=== PATIENT | male | born 1955 | race Caucasian/White ===

== ENCOUNTER 2016-07-11 13:22 | Inpatient (IN) | payer BC ==
[~2016-07-11] VITALS: Ht 172.7 cm; Wt 58.7 kg
[2016-07-11 15:02] LABS: Basophils # (auto) 0.1 uL; Basophils % (auto) 0.6 % (0.0-2.0); Eosinophils # (auto) 0.2 uL; Eosinophils % (auto) 1.7 % (0.0-7.0); Hemoglobin 15.6 g/dL (13.5-17.5); Lymphocytes # (auto) 1.8 uL; Lymphocytes % (auto) 13.9 % (10.0-50.0); Mean Corpuscular Hemoglobin 27.9 pg (28.0-32.0); Mean Corpuscular Hgb Conc. 32.5 g/dL (32.0-36.0); Mean Corpuscular Volume 85.9 fL (80.0-100.0); Mean Platelet Volume 7.3 fL (7.4-10.4); Monocytes # (auto) 1.4 uL; Neutrophils # (auto) 9.4 uL; Neutrophils % (auto) 72.8 % (37.0-80.0); Platelet Count (auto) 509 10^3/uL (140-450); Red Cell Distribution Width 13.1 % (11.6-16.0); White Blood Cell 12.9 10^3/uL (4.4-10.8)
[2016-07-11 15:29] LABS: Albumin 3.3 g/dL (3.4-5.0); Alkaline Phosphatase 116 U/L (45-117); Anion Gap 5 (5-15); Aspartate Aminotransferase 36 U/L (15-37); BUN/Creatinine Ratio 16.3; Bilirubin, Total 1.2 mg/dL (0.2-1.0); Blood Urea Nitrogen 17 mg/dL (7-18); Carbon Dioxide 29 mmol/L (21-32); Chloride 104 mmol/L (98-107); GFR African American 93 mL/min; GFR Non-African American 77 mL/min; Glucose 115 mg/dL (74-106); Magnesium 2.5 mg/dL (1.6-2.6); Potassium 4.1 mmol/L (3.5-5.1); Sodium 138 mmol/L (136-145); Total Protein 8.1 g/dL (6.4-8.2)
[2016-07-11 16:58] LABS: B-Type Natriuretic Peptide 3.78 pg/mL (0-100)
[2016-07-11 17:03] LABS: INR 0.98 (0.9-1.15); Partial Thromboplastin Time 28.5 sec (22.64-33.71); Prothrombin Time 10.6 sec (9.37-12.3)
[2016-07-11 17:41] LABS: Temperature: 23.7 C (20.0-25.0)
[2016-07-11] MEDS ORDERED: MORPHINE SULF INJ 2 MG/ML SYRINGE 1ML IV PRN (18:45)
[2016-07-11] MEDS ORDERED: NITROGLYCERIN 0.4 MG SL TAB SL PRN (18:45)
[2016-07-11] MEDS ORDERED: SOD CHL 0.45% 1,000 ML IV ONE (18:45)
[2016-07-11 22:58] VITALS: BP 126/81
[2016-07-11] MEDS ORDERED: LISI10TA6 PO (23:20)
[2016-07-11] MEDS ORDERED: METF-312 PO (23:20)
[2016-07-12 05:06] VITALS: BP 113/75
[2016-07-12 05:41] LABS: Basophils # (auto) 0 uL; Basophils % (auto) 0.4 % (0.0-2.0); DEFINITIVE VIEW TRANSMISSION; Eosinophils # (auto) 0.3 uL; Eosinophils % (auto) 2.6 % (0.0-7.0); Hematocrit 43.9 % (41.0-53.0); Hemoglobin 14.4 g/dL (13.5-17.5); Lymphocytes # (auto) 2.2 uL; Lymphocytes % (auto) 17.8 % (10.0-50.0); Mean Corpuscular Hgb Conc. 32.7 g/dL (32.0-36.0); Mean Corpuscular Volume 85.4 fL (80.0-100.0); Mean Platelet Volume 7.3 fL (7.4-10.4); Monocytes # (auto) 1.7 uL; Monocytes % (auto) 13.8 % (0.0-12.0); Neutrophils # (auto) 8.1 uL; Neutrophils % (auto) 65.4 % (37.0-80.0); Platelet Count (auto) 508 10^3/uL (140-450); White Blood Cell 12.4 10^3/uL (4.4-10.8)
[2016-07-12 06:07] LABS: Albumin 2.9 g/dL (3.4-5.0); BUN/Creatinine Ratio 14.9; Calcium 8.5 mg/dL (8.5-10.1); Potassium 3.8 mmol/L (3.5-5.1)
[2016-07-12 06:10] LABS: Bilirubin, Total 1.4 mg/dL (0.2-1.0); Total Protein 7.2 g/dL (6.4-8.2)
[2016-07-12 08:00] VITALS: BP 137/76
[2016-07-12] MEDS ORDERED: IOHEXOL 300 MG/ML 100ML BOTTLE IJ ONE ×3 (08:54→10:54)
[2016-07-12 13:00] VITALS: BP 149/84
[2016-07-12 17:00] VITALS: BP 117/75
[2016-07-12 18:19] LABS: Body Fluid Polymorphonuclear 13 %
[2016-07-12 21:30] VITALS: BP 139/87
[2016-07-13 05:00] VITALS: BP 116/78
[2016-07-13 08:43] VITALS: BP 119/79
[2016-07-13 12:18] VITALS: BP 134/47
[2016-07-13 16:51] VITALS: BP 140/82
[2016-07-13 22:00] VITALS: BP 149/95
[2016-07-14 05:00] VITALS: BP 132/81
[2016-07-14 09:00] VITALS: BP 131/78
[2016-07-14 13:00] VITALS: BP 119/79
[2016-07-14 17:00] VITALS: BP 130/70
[2016-07-14 22:00] VITALS: BP 141/83
[2016-07-15 05:00] VITALS: BP 132/81
[2016-07-15 08:48] VITALS: BP 141/87
[2016-07-15 12:36] VITALS: BP 140/75
[2016-07-15] MEDS ORDERED: DEXTROSE (50%) 50ML SYRG IV PRN (14:30)
[2016-07-15] MEDS: LISINOPRIL 10 MG TAB PO SCH (15:47)
[2016-07-15 16:42] VITALS: BP 143/90
[2016-07-15] MEDS: InsuLIN REG 1unit/0.01ml Soln (100units/ml) SC SCH ×2 (16:42→22:00)
[2016-07-15] MEDS: ACCU-CHEK COMFORT CURVE STRIP VI SCH ×2 (16:43→22:23)
[2016-07-15 22:00] VITALS: BP 152/91
[2016-07-16 05:42] LABS: Basophils # (auto) 0.1 uL; Basophils % (auto) 0.5 % (0.0-2.0); Eosinophils # (auto) 0.4 uL; Eosinophils % (auto) 3.5 % (0.0-7.0); Hematocrit 43.4 % (41.0-53.0); Hemoglobin 14.4 g/dL (13.5-17.5); Lymphocytes # (auto) 2.3 uL; Lymphocytes % (auto) 20.4 % (10.0-50.0); Mean Corpuscular Hemoglobin 28.3 pg (28.0-32.0); Mean Corpuscular Hgb Conc. 33.2 g/dL (32.0-36.0); Mean Corpuscular Volume 85.3 fL (80.0-100.0); Mean Platelet Volume 7.3 fL (7.4-10.4); Monocytes # (auto) 1.5 uL; Monocytes % (auto) 13.7 % (0.0-12.0); Neutrophils # (auto) 6.9 uL; Neutrophils % (auto) 61.9 % (37.0-80.0); Platelet Count (auto) 538 10^3/uL (140-450); Red Cell Distribution Width 12.5 % (11.6-16.0); White Blood Cell 11.1 10^3/uL (4.4-10.8)
[2016-07-16 05:47] LABS: Calcium 8.4 mg/dL (8.5-10.1); Potassium 4.4 mmol/L (3.5-5.1)
[2016-07-16 06:00] VITALS: BP 107/76
[2016-07-16] MEDS: ACCU-CHEK COMFORT CURVE STRIP VI SCH ×4 (06:02→22:00)
[2016-07-16] MEDS: InsuLIN REG 1unit/0.01ml Soln (100units/ml) SC SCH ×4 (06:02→22:00)
[2016-07-16 07:43] VITALS: BP 115/80
[2016-07-16] MEDS ORDERED: POVIDONE IODINE 10 % TOPICAL OINT 30GM TOP ONE ×2 (09:09→11:45)
[2016-07-16] MEDS ORDERED: BUPIVACAINE W/ EPINEPH 0.25% INJ 50ML MDV ONE (09:10)
[2016-07-16] MEDS ORDERED: BUPIVACAINE 0.25% INJ 50ML VIAL ONE (09:10)
[2016-07-16] MEDS ORDERED: LIDOCAINE W/ EPINEPHRINE 1 % INJ 30ML ONE (09:10)
[2016-07-16] MEDS ORDERED: LIDOCAINE 1% HCL (LOCAL ANESTH.) INJ 20ML MDV ONE (09:10)
[2016-07-16] MEDS ORDERED: ceFAZolin 1GM/50ML D5W 50 ML IV ONE (09:12)
[2016-07-16] MEDS ORDERED: MIDAZOLAM HCL 1MG/1ML-2 ML VIAL ONE (09:56)
[2016-07-16] MEDS ORDERED: DEXAMETHASONE SOD PHOS 10MG/1ML VIAL INJ ONE (09:56)
[2016-07-16] MEDS ORDERED: fentaNYL CITRATE 100 MCG/2 ML VL ONE (09:56)
[2016-07-16] MEDS ORDERED: PROPOFOL 10 MG/ML 20 ML IV ONE (09:56)
[2016-07-16] MEDS ORDERED: MEPERIDINE HCL (50 MG/ML) 1 ML VIAL ONE (09:57)
[2016-07-16] MEDS ORDERED: SUCCINYLCHOLINE CHLORIDE 20 MG/ML 10ML VIAL IV ONE (09:59)
[2016-07-16] MEDS: LISINOPRIL 10 MG TAB PO SCH (10:00)
[2016-07-16] MEDS ORDERED: ONDANSETRON HCL 4 MG/2 ML VIAL IV ONE (12:00)
[2016-07-16] MEDS ORDERED: HYDROmorphone HCL 2 MG/ML VL IV PRN (12:00)
[2016-07-16] MEDS ORDERED: ePHEDrine SULFATE 50 MG/ML AMP IV PRN (12:00)
[2016-07-16] MEDS ORDERED: ACCU-CHEK COMFORT CURVE STRIP VI ONE (12:00)
[2016-07-16] MEDS ORDERED: LABETALOL HCL 5 MG/ML 4ML SYRINGE IV PRN (12:00)
[2016-07-16] MEDS ORDERED: KETOROLAC TROMETH 30 MG/ML 1ML VIAL IV ONE (12:00)
[2016-07-16] MEDS: MORPHINE SULF INJ 2 MG/ML SYRINGE 1ML IV PRN ×2 (12:20→12:30)
[2016-07-16 16:49] VITALS: BP 99/70
[2016-07-16 22:00] VITALS: BP 125/73
[2016-07-17] MEDS: HYDROcodone-ACET 5/325MG TAB PO PRN ×2 (04:55→12:29)
[2016-07-17 06:00] VITALS: BP 115/76
[2016-07-17] MEDS: InsuLIN REG 1unit/0.01ml Soln (100units/ml) SC SCH ×3 (07:00→22:00)
[2016-07-17] MEDS: ACCU-CHEK COMFORT CURVE STRIP VI SCH ×3 (07:11→22:26)
[2016-07-17 08:00] VITALS: BP 120/75
[2016-07-17] MEDS: LISINOPRIL 10 MG TAB PO SCH (08:40)
[2016-07-17 12:00] VITALS: BP 121/83
[2016-07-17] MEDS: MORPHINE SULF INJ 2 MG/ML SYRINGE 1ML IV PRN (14:38)
[2016-07-17 17:00] VITALS: BP 129/78
[2016-07-17 22:00] VITALS: BP 113/58
[2016-07-18 05:00] VITALS: BP 114/69
[2016-07-18] MEDS: HYDROcodone-ACET 5/325MG TAB PO PRN ×3 (05:09→20:42)
[2016-07-18] MEDS: InsuLIN REG 1unit/0.01ml Soln (100units/ml) SC SCH ×4 (06:02→21:21)
[2016-07-18] MEDS: ACCU-CHEK COMFORT CURVE STRIP VI SCH ×4 (06:02→21:21)
[2016-07-18 07:52] VITALS: BP 125/74
[2016-07-18] MEDS: LISINOPRIL 10 MG TAB PO SCH (10:21)
[2016-07-18 12:12] VITALS: BP 135/64
[2016-07-18 16:47] VITALS: BP 144/80
[2016-07-18 22:00] VITALS: BP_SYST 106; BP_SYST 130; BP_DIAS 68; BP_DIAS 71
[2016-07-19 05:00] VITALS: BP 121/77
[2016-07-19] MEDS: ACCU-CHEK COMFORT CURVE STRIP VI SCH ×3 (06:43→17:00)
[2016-07-19] MEDS: InsuLIN REG 1unit/0.01ml Soln (100units/ml) SC SCH ×4 (06:43→22:00)
[2016-07-19 08:48] VITALS: BP 113/71
[2016-07-19] MEDS: HYDROcodone-ACET 5/325MG TAB PO PRN (09:54)
[2016-07-19] MEDS: LISINOPRIL 10 MG TAB PO SCH (09:55)
[2016-07-19 12:54] VITALS: BP 117/70
[2016-07-19 16:42] VITALS: BP 124/71
[2016-07-19 22:00] VITALS: BP 118/82
[2016-07-20] MEDS: HYDROcodone-ACET 5/325MG TAB PO PRN ×2 (02:38→21:48)
[2016-07-20] MEDS: ACCU-CHEK COMFORT CURVE STRIP VI SCH ×5 (02:39→21:45)
[2016-07-20 05:00] VITALS: BP 127/68
[2016-07-20] MEDS: InsuLIN REG 1unit/0.01ml Soln (100units/ml) SC SCH ×4 (06:28→21:45)
[2016-07-20 09:00] VITALS: BP 121/79
[2016-07-20] MEDS: LISINOPRIL 10 MG TAB PO SCH (09:59)
[2016-07-20 13:00] VITALS: BP 123/69
[2016-07-20 17:00] VITALS: BP 121/76
[2016-07-20 20:00] VITALS: BP 129/82
[2016-07-20 22:00] VITALS: BP 129/82
[2016-07-21 05:00] VITALS: BP 113/74
[2016-07-21] MEDS: InsuLIN REG 1unit/0.01ml Soln (100units/ml) SC SCH ×4 (06:35→22:00)
[2016-07-21] MEDS: ACCU-CHEK COMFORT CURVE STRIP VI SCH ×4 (06:35→21:59)
[2016-07-21] MEDS: HYDROcodone-ACET 5/325MG TAB PO PRN ×2 (06:36→21:44)
[2016-07-21 06:58] LABS: Basophils # (auto) 0.1 uL; Basophils % (auto) 0.5 % (0.0-2.0); DEFINITIVE VIEW TRANSMISSION; Eosinophils # (auto) 0.5 uL; Eosinophils % (auto) 4.3 % (0.0-7.0); Hematocrit 41.8 % (41.0-53.0); Lymphocytes # (auto) 2.4 uL; Lymphocytes % (auto) 21.8 % (10.0-50.0); Mean Corpuscular Hemoglobin 28.3 pg (28.0-32.0); Mean Corpuscular Hgb Conc. 33.5 g/dL (32.0-36.0); Mean Corpuscular Volume 84.6 fL (80.0-100.0); Mean Platelet Volume 7.1 fL (7.4-10.4); Monocytes # (auto) 1.6 uL; Monocytes % (auto) 14.9 % (0.0-12.0); Neutrophils # (auto) 6.4 uL; Neutrophils % (auto) 58.5 % (37.0-80.0); Platelet Count (auto) 587 10^3/uL (140-450); Red Cell Distribution Width 12.7 % (11.6-16.0); White Blood Cell 10.9 10^3/uL (4.4-10.8)
[2016-07-21 06:59] LABS: INR 0.98 (0.9-1.15); Prothrombin Time 10.7 sec (9.37-12.3)
[2016-07-21 07:11] LABS: Potassium 4.6 mmol/L (3.5-5.1)
[2016-07-21 07:17] LABS: Albumin 2.5 g/dL (3.4-5.0); Calcium 8.9 mg/dL (8.5-10.1); Magnesium 2.5 mg/dL (1.6-2.6)
[2016-07-21 07:24] LABS: Bilirubin, Total 0.7 mg/dL (0.2-1.0); Total Protein 7.3 g/dL (6.4-8.2)
[2016-07-21 09:00] VITALS: BP 122/76
[2016-07-21] MEDS: LISINOPRIL 10 MG TAB PO SCH (09:48)
[2016-07-21 13:00] VITALS: BP 129/74
[2016-07-21 17:00] VITALS: BP 131/79
[2016-07-21 20:00] VITALS: BP 132/88
[2016-07-21 22:00] VITALS: BP 132/88
[2016-07-22 05:00] VITALS: BP 115/73
[2016-07-22 05:47] LABS: Basophils # (auto) 0.1 uL; Basophils % (auto) 0.5 % (0.0-2.0); Eosinophils # (auto) 0.5 uL; Eosinophils % (auto) 4.7 % (0.0-7.0); Hematocrit 42.1 % (41.0-53.0); Hemoglobin 13.9 g/dL (13.5-17.5); INR 1.01 (0.9-1.15); Lymphocytes # (auto) 2.7 uL; Lymphocytes % (auto) 23.6 % (10.0-50.0); Mean Corpuscular Hgb Conc. 32.9 g/dL (32.0-36.0); Mean Corpuscular Volume 85.1 fL (80.0-100.0); Monocytes # (auto) 1.6 uL; Monocytes % (auto) 13.8 % (0.0-12.0); Neutrophils # (auto) 6.5 uL; Neutrophils % (auto) 57.4 % (37.0-80.0); Platelet Count (auto) 617 10^3/uL (140-450); Red Cell Distribution Width 12.7 % (11.6-16.0); White Blood Cell 11.4 10^3/uL (4.4-10.8)
[2016-07-22 05:53] LABS: Albumin 2.5 g/dL (3.4-5.0); Calcium 8.7 mg/dL (8.5-10.1); Magnesium 2.3 mg/dL (1.6-2.6); Potassium 4.6 mmol/L (3.5-5.1)
[2016-07-22 05:58] LABS: Bilirubin, Total 0.9 mg/dL (0.2-1.0); Total Protein 7.2 g/dL (6.4-8.2)
[2016-07-22] MEDS: InsuLIN REG 1unit/0.01ml Soln (100units/ml) SC SCH ×4 (06:00→22:00)
[2016-07-22] MEDS: ACCU-CHEK COMFORT CURVE STRIP VI SCH ×4 (06:00→22:32)
[2016-07-22] MEDS: HYDROcodone-ACET 5/325MG TAB PO PRN ×3 (06:01→23:10)
[2016-07-22 09:00] VITALS: BP 120/67
[2016-07-22] MEDS: LISINOPRIL 10 MG TAB PO SCH (09:08)
[2016-07-22 13:00] VITALS: BP 129/73
[2016-07-22] MEDS ORDERED: LEVOFLOXACIN 750MG 150 ML IV ONE (13:30)
[2016-07-22] MEDS ORDERED: MORPHINE SULF INJ 2 MG/ML SYRINGE 1ML IV PRN (13:30)
[2016-07-22] MEDS ORDERED: IOHEXOL 300 MG/ML 100ML BOTTLE IJ ONE (15:39)
[2016-07-22 17:00] VITALS: BP 115/70
[2016-07-22 20:00] VITALS: BP 133/80
[2016-07-22 21:46] VITALS: BP 133/80
[2016-07-23] VITALS (7 sets, daily range): BP systolic 110–123; BP diastolic 56–78
[2016-07-23] MEDS: ACCU-CHEK COMFORT CURVE STRIP VI SCH ×4 (06:05→22:00)
[2016-07-23] MEDS: InsuLIN REG 1unit/0.01ml Soln (100units/ml) SC SCH ×4 (06:05→22:00)
[2016-07-23] MEDS: LEVOFLOXACIN 750MG 150 ML IV SCH (09:30)
[2016-07-23] MEDS: LISINOPRIL 10 MG TAB PO SCH (09:30)
[2016-07-23] MEDS: MORPHINE SULF INJ 2 MG/ML SYRINGE 1ML IV PRN (14:54)
[2016-07-24 05:00] VITALS: BP 102/66
[2016-07-24] MEDS: ACCU-CHEK COMFORT CURVE STRIP VI SCH ×2 (06:36→11:30)
[2016-07-24] MEDS: InsuLIN REG 1unit/0.01ml Soln (100units/ml) SC SCH ×2 (06:37→11:30)
[2016-07-24 08:00] VITALS: BP 114/77
[2016-07-24 09:00] VITALS: BP 114/77
[2016-07-24] MEDS: HYDROcodone-ACET 5/325MG TAB PO PRN (10:19)
[2016-07-24] MEDS: LISINOPRIL 10 MG TAB PO SCH (10:20)
[2016-07-24] MEDS ORDERED: LEVO750T64 PO ×2 (11:32→15:31)
[2016-07-24 13:00] VITALS: BP 112/76
[2016-07-24 13:51] VITALS: BP 112/76
[2016-07-24] MEDS: LEVOFLOXACIN 750MG 150 ML IV SCH (15:29)
[2016-07-24 22:00] VITALS: BP 107/55
== END 2016-07-24 14:52 | disposition home or self-care (01) | DRG 166 ==
LOC: ER 13:30 → TELE 13:31 → EAST 21:18 → TELE-EAST 07-16 15:03 → EAST 07-24 02:21
PROVIDERS: ADMIT Internal Medicine; ATTEND Internal Medicine
PROC: 0W9B3ZZ Drainage of Left Pleural Cavity, Percutaneous Approach (ICD-10-PCS; principal; 2016-07-11)
PROC: BB4BZZZ Ultrasonography of Pleura (ICD-10-PCS; 2016-07-11)
PROC: 0W9B40Z Drainage of Left Pleural Cavity with Drainage Device, Percutaneous Endoscopic Approach (ICD-10-PCS; 2016-07-16)
PROC: 0BBP4ZX Excision of Left Pleura, Percutaneous Endoscopic Approach, Diagnostic (ICD-10-PCS; 2016-07-16)
DX: J18.9 Pneumonia, unspecified organism (principal); J96.01 Acute respiratory failure with hypoxia; J90 Pleural effusion, not elsewhere classified; J45.909 Unspecified asthma, uncomplicated; I10 Essential (primary) hypertension; E79.0 Hyperuricemia without signs of inflammatory arthritis and tophaceous disease; N62 Hypertrophy of breast; K40.20 Bilateral inguinal hernia, without obstruction or gangrene, not specified as recurrent; E11.649 Type 2 diabetes mellitus with hypoglycemia without coma; M25.561 Pain in right knee; K57.90 Diverticulosis of intestine, part unspecified, without perforation or abscess without bleeding; Z90.49 Acquired absence of other specified parts of digestive tract; Z85.038 Personal history of other malignant neoplasm of large intestine; Z79.84 Long term (current) use of oral hypoglycemic drugs; Z80.8 Family history of malignant neoplasm of other organs or systems; Z82.49 Family history of ischemic heart disease and other diseases of the circulatory system; Z85.048 Personal history of other malignant neoplasm of rectum, rectosigmoid junction, and anus; Z88.8 Allergy status to other drugs, medicaments and biological substances; Z90.89 Acquired absence of other organs
CPT/HCPCS: 36415; 71010; 71020; 71260; 74177; 76604; 76942; 80048; 80053; 82962; 83036; 83735; 83880; 83986; 84443; 84484; 84550; 85025; 85610; 85652; 85730; 86850; 86900; 86901; 87205; 88341; 89051; 93005; 94761; A4565; J0330; J0690; J1100; J1885; J1956; J2001; J2250; J2405; J2704; J3490

== ENCOUNTER → 2016-08-06 | Outpatient (CLI) | payer BC ==
[~2016-08-06] MED LIST: IOHEXOL 300 MG/ML 100ML BOTTLE IJ ONE; LEVO750T64 PO; LISI10TA6 PO; METF-370 PO
== END | disposition home or self-care (01) ==
LOC: CT 12:10
PROVIDERS: ATTEND Surgery
DX: J98.11 Atelectasis (principal); M47.814 Spondylosis without myelopathy or radiculopathy, thoracic region; J96.01 Acute respiratory failure with hypoxia; J94.8 Other specified pleural conditions
CPT/HCPCS: 36415; 71260; 82565; 84520; Q9967

== ENCOUNTER → 2016-11-20 | Outpatient (CLI) | payer BC ==
[~2016-11-20] MED LIST changes: +ALBUAER3 IN; +BECL0.07 IN; -IOHEXOL 300 MG/ML 100ML BOTTLE IJ ONE
== END | disposition home or self-care (01) ==
LOC: XYW 09:02
PROVIDERS: ATTEND Orthopaedic Surgery
DX: Z01.810 Encounter for preprocedural cardiovascular examination (principal); I51.7 Cardiomegaly
CPT/HCPCS: 93306

== ENCOUNTER → 2016-11-22 | Day surgery (SDC) | payer BC ==
[2016-11-19 10:01] LABS: Basophils # (auto) 0.1 uL; Basophils % (auto) 0.9 % (0.0-2.0); Eosinophils # (auto) 0.3 uL; Hematocrit 48.5 % (41.0-53.0); Lymphocytes # (auto) 1.4 uL; Lymphocytes % (auto) 18.1 % (10.0-50.0); Mean Corpuscular Hemoglobin 27.1 pg (28.0-32.0); Mean Corpuscular Hgb Conc. 33.1 g/dL (32.0-36.0); Mean Platelet Volume 6.6 fL (6.9-10.8); Monocytes # (auto) 0.8 uL; Neutrophils # (auto) 5.1 uL; Platelet Count (auto) 342 10^3/uL (140-450); Red Cell Distribution Width 15.4 % (11.8-14.3); White Blood Cell 7.7 10^3/uL (4.4-10.8)
[2016-11-19 10:19] LABS: INR 0.99 (0.9-1.15); Partial Thromboplastin Time 28.2 sec (22.64-33.71); Prothrombin Time 10.8 sec (9.37-12.3)
[2016-11-19 10:54] LABS: Albumin 3.6 g/dL (3.4-5.0); BUN/Creatinine Ratio 16.5; Bilirubin, Total 0.8 mg/dL (0.2-1.0); Calcium 8.9 mg/dL (8.5-10.1); Total Protein 8.1 g/dL (6.4-8.2)
[2016-11-19 11:01] LABS: Urine Bilirubin Negative (Negative); Urine Blood Negative /uL (Negative); Urine Color Yellow (Yellow); Urine Glucose Normal (Normal); Urine Ketone Negative (Negative); Urine Nitrite Negative (Negative); Urine RBC None Seen /hpf (0 - 3); Urine Urobilinogen Normal (Negative)
[2016-11-19 12:34] LABS: Platelet Estimate Adequate
[2016-11-19 12:35] LABS: Anisocytosis Slight
[2016-11-19 12:36] LABS: Large Platelets FEW
[~2016-11-22] VITALS: Ht 172.7 cm; Wt 85.3 kg
[~2016-11-22] MED LIST changes: +ACCU-CHEK COMFORT CURVE STRIP VI ONE; +BUPIVACAINE 0.25% INJ 50ML VIAL ONE; +HYDROmorphone HCL 2 MG/ML VL IV PRN; +METOCLOPRAMIDE HCL 5MG/ml INJ 2ml VIAL ONE; +MIDAZOLAM HCL 1MG/1ML-2 ML VIAL ONE; +MORPHINE SULF(PF) 0.5MG/ML 10ML VIAL ONE; +NALOXONE HCL 0.4 MG/ML VIAL IV PRN; +ONDANSETRON HCL 4 MG/2 ML VIAL IV ONE; +ONDANSETRON HCL 4 MG/2 ML VIAL ONE; +PROPOFOL 10 MG/ML 20 ML IV ONE; +ceFAZolin 1GM VL ONE; +ceFAZolin 1GM/50ML D5W 50 ML IV ONE; +fentaNYL CITRATE 100 MCG/2 ML VL IV PRN; +fentaNYL CITRATE 100 MCG/2 ML VL ONE; +hydrALAZINE HCL 20 MG/ML VL IV PRN
[2016-11-22 14:03] VITALS: BP 113/73
== END | disposition home or self-care (01) ==
LOC: SUR 07:50
PROVIDERS: ATTEND Orthopaedic Surgery
DX: S83.241A Other tear of medial meniscus, current injury, right knee, initial encounter (principal); X58.XXXA Exposure to other specified factors, initial encounter; Y93.89 Activity, other specified; Y92.89 Other specified places as the place of occurrence of the external cause; Y99.8 Other external cause status; S83.8X1A Sprain of other specified parts of right knee, initial encounter; G47.30 Sleep apnea, unspecified; E11.9 Type 2 diabetes mellitus without complications; B19.10 Unspecified viral hepatitis B without hepatic coma; Z90.49 Acquired absence of other specified parts of digestive tract
CPT/HCPCS: 29881; 36415; 80053; 81001; 82962; 85025; 85610; 85730; J0690; J2250; J2270; J2405; J2704; J2765; J3010; J3490

== ENCOUNTER → 2017-02-14 | Outpatient (CLI) | payer BC ==
[~2017-02-14] MED LIST changes: -ACCU-CHEK COMFORT CURVE STRIP VI ONE; -BUPIVACAINE 0.25% INJ 50ML VIAL ONE; -HYDROmorphone HCL 2 MG/ML VL IV PRN; -METOCLOPRAMIDE HCL 5MG/ml INJ 2ml VIAL ONE; -MIDAZOLAM HCL 1MG/1ML-2 ML VIAL ONE; -MORPHINE SULF(PF) 0.5MG/ML 10ML VIAL ONE; -NALOXONE HCL 0.4 MG/ML VIAL IV PRN; -ONDANSETRON HCL 4 MG/2 ML VIAL IV ONE; -ONDANSETRON HCL 4 MG/2 ML VIAL ONE; -PROPOFOL 10 MG/ML 20 ML IV ONE; -ceFAZolin 1GM VL ONE; -ceFAZolin 1GM/50ML D5W 50 ML IV ONE; -fentaNYL CITRATE 100 MCG/2 ML VL IV PRN; -fentaNYL CITRATE 100 MCG/2 ML VL ONE; -hydrALAZINE HCL 20 MG/ML VL IV PRN
== END | disposition home or self-care (01) ==
LOC: LAB 11:23
PROVIDERS: ATTEND Surgery
DX: J90 Pleural effusion, not elsewhere classified (principal)
CPT/HCPCS: 36415; 82565; 84520

== ENCOUNTER → 2017-06-13 | Day surgery (SDC) | payer BC ==
[2017-06-10 16:05] LABS: Basophils # (auto) 0.1 uL; Basophils % (auto) 0.9 % (0.0-2.0); Eosinophils # (auto) 0.4 uL; Eosinophils % (auto) 4.4 % (0.0-7.0); Hemoglobin 15.8 g/dL (13.5-17.5); Lymphocytes # (auto) 1.7 uL; Lymphocytes % (auto) 20.9 % (10.0-50.0); Mean Corpuscular Hemoglobin 27.2 pg (28.0-32.0); Mean Corpuscular Hgb Conc. 32.9 g/dL (32.0-36.0); Mean Corpuscular Volume 82.8 fL (80.0-100.0); Monocytes % (auto) 12.7 % (0.0-12.0); Neutrophils % (auto) 61.1 % (37.0-80.0); Nucleated Red Blood Cells % 0.1 %; Platelet Count (auto) 340 10^3/uL (140-450); Red Cell Distribution Width 14.6 % (11.8-14.3); White Blood Cell 8.2 10^3/uL (4.4-10.8)
[2017-06-10 16:20] LABS: INR 0.98 (0.9-1.15); Partial Thromboplastin Time 28.3 sec (22.64-33.71); Prothrombin Time 10.7 sec (9.37-12.3)
[~2017-06-13] VITALS: Ht 172.7 cm; Wt 84.4 kg
[~2017-06-13] MED LIST changes: +EPINEPHrine HCL 1 MG/1 ML AMP ONE; -LEVO750T64 PO; +LIDOCAINE 2% (LOCAL ANESTH.) PF 5ml SDV ONE; +LIDOCAINE HCL 2% TOP JELLY 5ML TOP ONE; +LISI-707 PO; -LISI10TA6 PO
[2017-06-13] MEDS: MIDAZOLAM HCL 5 MG/ML-1ML VIAL ONE ×2 (12:38→12:41)
[2017-06-13] MEDS: fentaNYL CITRATE 100 MCG/2 ML VL ONE ×2 (12:39→12:43)
[2017-06-13 14:42] VITALS: BP 102/71
== END | disposition home or self-care (01) ==
LOC: GI 09:57
PROVIDERS: ATTEND Internal Medicine Pulmonary Disease
DX: J90 Pleural effusion, not elsewhere classified (principal); J45.998 Other asthma; I10 Essential (primary) hypertension; Z90.49 Acquired absence of other specified parts of digestive tract; G47.33 Obstructive sleep apnea (adult) (pediatric); E11.9 Type 2 diabetes mellitus without complications; E66.9 Obesity, unspecified; Z88.5 Allergy status to narcotic agent; G47.30 Sleep apnea, unspecified
CPT/HCPCS: 31623; 36415; 85025; 85610; 85730; 88104; 88305; 88312; 88313; J0171; J2250; J3010

== ENCOUNTER 2017-07-13 03:49 | Inpatient (IN) | payer BC ==
[~2017-07-13] VITALS: Ht 172.7 cm; Wt 84.0 kg
[~2017-07-13 03:49] MED LIST changes: -EPINEPHrine HCL 1 MG/1 ML AMP ONE; -LIDOCAINE 2% (LOCAL ANESTH.) PF 5ml SDV ONE; -LIDOCAINE HCL 2% TOP JELLY 5ML TOP ONE
[2017-07-13 07:26] LABS: Basophils # (auto) 0.1 uL; Basophils % (auto) 0.9 % (0.0-2.0); Eosinophils # (auto) 0.7 uL; Eosinophils % (auto) 8.2 % (0.0-7.0); Hematocrit 43.7 % (41.0-53.0); Hemoglobin 14.7 g/dL (13.5-17.5); Lymphocytes # (auto) 1.9 uL; Lymphocytes % (auto) 22.6 % (10.0-50.0); Mean Corpuscular Hemoglobin 27.9 pg (28.0-32.0); Mean Corpuscular Hgb Conc. 33.6 g/dL (32.0-36.0); Monocytes # (auto) 1.1 uL; Monocytes % (auto) 13.3 % (0.0-12.0); Neutrophils # (auto) 4.6 uL; Nucleated Red Blood Cells % 0.1 %; Platelet Count (auto) 293 10^3/uL (140-450); Red Blood Cells 5.27 10^6/uL (4.5-5.90); Red Cell Distribution Width 14.8 % (11.8-14.3); White Blood Cell 8.4 10^3/uL (4.4-10.8)
[2017-07-13 07:28] LABS: Alanine Aminotransferase 30 U/L (16-61); Albumin 3.5 g/dL (3.4-5.0); Anion Gap 10 (5-15); Blood Urea Nitrogen 23 mg/dL (7-18); Calcium 8.6 mg/dL (8.5-10.1); Carbon Dioxide 25 mmol/L (21-32); Chloride 109 mmol/L (98-107); GFR African American 102 mL/min; GFR Non-African American 84 mL/min; Glucose 110 mg/dL (74-106); Sodium 144 mmol/L (136-145)
[2017-07-13 07:31] LABS: INR 0.98 (0.9-1.15); Prothrombin Time 10.7 sec (9.37-12.3)
[2017-07-13 07:49] LABS: Alkaline Phosphatase 78 U/L (45-117); Aspartate Aminotransferase 16 U/L (15-37); Total Protein 7.8 g/dL (6.4-8.2)
[2017-07-13] MEDS ORDERED: VANCOMYCIN 1GM/250ML 250 ML IV ONE (11:15)
[2017-07-13] MEDS ORDERED: cefTRIAXone 1GM/10ml IVPUSH 10 ML IV ONE (11:15)
[2017-07-13] MEDS ORDERED: cloNIDine HCL 0.1 MG TAB PO ONE ×2 (12:45→13:00)
[2017-07-13] MEDS ORDERED: methylPREDNISolone SOD SUCC 125 MG/2 ML VL IV ONE (13:00)
[2017-07-13] MEDS ORDERED: diphenhdrAMINE HCL 50 MG/1 ML VL IV ONE (13:00)
[2017-07-13] MEDS ORDERED: DEXTROSE (50%) 50ML SYRG IV PRN (14:00)
[2017-07-13] MEDS ORDERED: ACETAMINOPHEN 325 MG TAB PO PRN (14:00)
[2017-07-13] MEDS ORDERED: TEMAZEPAM 15 MG CAP PO PRN (14:00)
[2017-07-13] MEDS ORDERED: MORPHINE SULFATE 4 MG/ML SYR/VIAL IV PRN (14:00)
[2017-07-13] MEDS ORDERED: NITROGLYCERIN 0.4 MG SL TAB SL PRN (14:00)
[2017-07-13] MEDS ORDERED: ONDANSETRON HCL 4 MG/2 ML VIAL IV PRN (14:00)
[2017-07-13] MEDS ORDERED: AZITHROMYCIN 500MG/ 250ML 250 ML IV ONE (14:00)
[2017-07-13] MEDS ORDERED: DOCUSATE SOD 100 MG CAP PO PRN (14:00)
[2017-07-13 14:29] VITALS: BP 152/106
[2017-07-13] MEDS: HCTZ 25 MG TAB PO SCH (14:29)
[2017-07-13] MEDS: LISINOPRIL 10 MG TAB PO SCH (14:29)
[2017-07-13] MEDS: SODIUM CHLORIDE 0.9% 1,000 ML IV SCH (14:53)
[2017-07-13] MEDS: InsuLIN REG 1unit/0.01ml Soln (100units/ml) SC SCH (17:00)
[2017-07-13 17:04] VITALS: BP 149/98
[2017-07-13 17:06] VITALS: BP 149/98
[2017-07-13] MEDS: ACCU-CHEK COMFORT CURVE STRIP VI SCH ×2 (17:47→22:00)
[2017-07-13] MEDS: IPRATROPIUM BROM 0.5 MG/2.5ML INH SOL NEB SCH ×2 (19:00→23:46)
[2017-07-13] MEDS: ALBUTEROL SULF 2.5 MG/0.5ML(0.5%) NEB SOLN NEB SCH ×2 (19:00→23:46)
[2017-07-13] MEDS: BUDESONIDE (INHALATION) 0.5 MG/2 ML NEB NEB SCH (19:01)
[2017-07-13 20:14] LABS: Urine Bacteria NONE SEEN /hpf (None Seen); Urine Blood Negative /uL (Negative); Urine Specific Gravity 1.008 (1.001-1.035); Urine WBC <1 /hpf (0 - 3)
[2017-07-13 21:48] VITALS: BP 147/94
[2017-07-13] MEDS: FAMOTIDINE 20 MG TAB PO SCH (22:52)
[2017-07-14 04:48] VITALS: BP 122/70
[2017-07-14] MEDS: InsuLIN REG 1unit/0.01ml Soln (100units/ml) SC SCH ×5 (05:34→22:00)
[2017-07-14 06:35] LABS: Basophils # (auto) 0 uL; Eosinophils # (auto) 0 uL; Hematocrit 43.6 % (41.0-53.0); Hemoglobin 14.5 g/dL (13.5-17.5); Lymphocytes # (auto) 0.9 uL; Lymphocytes % (auto) 5.6 % (10.0-50.0); Mean Corpuscular Hemoglobin 27.2 pg (28.0-32.0); Mean Corpuscular Hgb Conc. 33.2 g/dL (32.0-36.0); Mean Corpuscular Volume 81.9 fL (80.0-100.0); Monocytes # (auto) 0.4 uL; Monocytes % (auto) 2.6 % (0.0-12.0); Neutrophils # (auto) 14.1 uL; Neutrophils % (auto) 91.8 % (37.0-80.0); Platelet Count (auto) 315 10^3/uL (140-450); Red Blood Cells 5.32 10^6/uL (4.5-5.90); Red Cell Distribution Width 14.3 % (11.8-14.3); White Blood Cell 15.4 10^3/uL (4.4-10.8)
[2017-07-14] MEDS: SODIUM CHLORIDE 0.9% 1,000 ML IV SCH ×2 (06:38→23:18)
[2017-07-14] MEDS: IPRATROPIUM BROM 0.5 MG/2.5ML INH SOL NEB SCH ×4 (06:48→22:09)
[2017-07-14] MEDS: ALBUTEROL SULF 2.5 MG/0.5ML(0.5%) NEB SOLN NEB SCH ×4 (06:48→22:09)
[2017-07-14] MEDS: BUDESONIDE (INHALATION) 0.5 MG/2 ML NEB NEB SCH ×2 (06:49→22:09)
[2017-07-14 06:55] LABS: Albumin 3.2 g/dL (3.4-5.0); Calcium 8.9 mg/dL (8.5-10.1); Potassium 4.2 mmol/L (3.5-5.1)
[2017-07-14] MEDS: ACCU-CHEK COMFORT CURVE STRIP VI SCH ×4 (06:58→22:02)
[2017-07-14 07:03] LABS: BUN/Creatinine Ratio 21.7; Bilirubin, Total 1.1 mg/dL (0.2-1.0); Total Protein 7.7 g/dL (6.4-8.2)
[2017-07-14 08:41] VITALS: BP 149/79
[2017-07-14] MEDS: cefTRIAXone 1GM/10ml IVPUSH 10 ML IV SCH (10:39)
[2017-07-14] MEDS: FAMOTIDINE 20 MG TAB PO SCH ×2 (10:41→22:01)
[2017-07-14] MEDS: LISINOPRIL 10 MG TAB PO SCH (10:42)
[2017-07-14] MEDS: HCTZ 25 MG TAB PO SCH (10:43)
[2017-07-14] MEDS: MULTIPLE VITAMIN TAB PO SCH (10:43)
[2017-07-14] MEDS: AZITHROMYCIN 500MG/ 250ML 250 ML IV SCH (11:19)
[2017-07-14 11:48] VITALS: BP 145/79
[2017-07-14] MEDS: diphenhdrAMINE HCL 50 MG/1 ML VL IV PRN (13:57)
[2017-07-14 17:00] VITALS: BP 135/78
[2017-07-14 19:20] LABS: INR 1.04 (0.9-1.15); Prothrombin Time 11.3 sec (9.37-12.3)
[2017-07-14 22:00] VITALS: BP 139/54
[2017-07-15 04:48] VITALS: BP 132/77
[2017-07-15] MEDS: ALBUTEROL SULF 2.5 MG/0.5ML(0.5%) NEB SOLN NEB SCH ×3 (05:50→18:55)
[2017-07-15] MEDS: IPRATROPIUM BROM 0.5 MG/2.5ML INH SOL NEB SCH ×3 (05:50→18:55)
[2017-07-15] MEDS: BUDESONIDE (INHALATION) 0.5 MG/2 ML NEB NEB SCH ×2 (05:51→18:55)
[2017-07-15] MEDS: InsuLIN REG 1unit/0.01ml Soln (100units/ml) SC SCH ×4 (06:44→21:49)
[2017-07-15] MEDS: ACCU-CHEK COMFORT CURVE STRIP VI SCH ×4 (06:44→21:48)
[2017-07-15 07:55] VITALS: BP 132/77
[2017-07-15 08:51] VITALS: BP 143/88
[2017-07-15] MEDS: cefTRIAXone 1GM/10ml IVPUSH 10 ML IV SCH (09:29)
[2017-07-15] MEDS: FAMOTIDINE 20 MG TAB PO SCH ×2 (09:29→21:48)
[2017-07-15] MEDS: MULTIPLE VITAMIN TAB PO SCH (09:30)
[2017-07-15] MEDS: LISINOPRIL 10 MG TAB PO SCH (09:30)
[2017-07-15] MEDS: HCTZ 25 MG TAB PO SCH (09:35)
[2017-07-15] MEDS: diphenhdrAMINE HCL 50 MG/1 ML VL IV PRN (10:15)
[2017-07-15] MEDS: AZITHROMYCIN 500MG/ 250ML 250 ML IV SCH (10:15)
[2017-07-15 14:25] VITALS: BP 154/98
[2017-07-15] MEDS: SODIUM CHLORIDE 0.9% 1,000 ML IV SCH (15:58)
[2017-07-15] MEDS ORDERED: MIDAZOLAM HCL 1MG/1ML-2 ML VIAL ONE (16:24)
[2017-07-15] MEDS ORDERED: fentaNYL CITRATE 100 MCG/2 ML VL ONE (16:25)
[2017-07-15] MEDS ORDERED: MIDAZOLAM HCL 1MG/1ML-2 ML VIAL IV ONE (17:15)
[2017-07-15] MEDS ORDERED: fentaNYL CITRATE 100 MCG/2 ML VL IV ONE (17:15)
[2017-07-15 20:21] VITALS: BP 153/91
[2017-07-16 04:54] VITALS: BP 145/94
[2017-07-16] MEDS: MORPHINE SULFATE 4 MG/ML SYR/VIAL IV PRN ×6 (06:03→18:15)
[2017-07-16] MEDS: ACCU-CHEK COMFORT CURVE STRIP VI SCH ×4 (06:12→21:54)
[2017-07-16] MEDS: InsuLIN REG 1unit/0.01ml Soln (100units/ml) SC SCH ×4 (06:12→21:53)
[2017-07-16] MEDS: ALBUTEROL SULF 2.5 MG/0.5ML(0.5%) NEB SOLN NEB SCH ×4 (06:58→19:27)
[2017-07-16] MEDS: IPRATROPIUM BROM 0.5 MG/2.5ML INH SOL NEB SCH ×4 (06:58→19:27)
[2017-07-16] MEDS: BUDESONIDE (INHALATION) 0.5 MG/2 ML NEB NEB SCH ×2 (06:58→19:28)
[2017-07-16 07:09] LABS: Basophils # (auto) 0.1 uL; Lymphocytes # (auto) 2.1 uL
[2017-07-16 07:13] LABS: Basophils % (auto) 0.7 % (0.0-2.0); Eosinophils # (auto) 0.3 uL; Eosinophils % (auto) 3.1 % (0.0-7.0); Hematocrit 47.8 % (41.0-53.0); Mean Corpuscular Hemoglobin 27.5 pg (28.0-32.0); Mean Corpuscular Hgb Conc. 33.5 g/dL (32.0-36.0); Mean Corpuscular Volume 81.9 fL (80.0-100.0); Monocytes # (auto) 1.5 uL; Monocytes % (auto) 13.8 % (0.0-12.0); Neutrophils # (auto) 7.1 uL; Neutrophils % (auto) 63.4 % (37.0-80.0); Nucleated Red Blood Cells % 0.2 %; Platelet Count (auto) 325 10^3/uL (140-450); Red Blood Cells 5.83 10^6/uL (4.5-5.90); Red Cell Distribution Width 14.7 % (11.8-14.3); White Blood Cell 11.2 10^3/uL (4.4-10.8)
[2017-07-16 08:39] VITALS: BP 147/90
[2017-07-16] MEDS: SODIUM CHLORIDE 0.9% 1,000 ML IV SCH (09:45)
[2017-07-16] MEDS: AZITHROMYCIN 500MG/ 250ML 250 ML IV SCH (09:46)
[2017-07-16] MEDS: HCTZ 25 MG TAB PO SCH (09:47)
[2017-07-16] MEDS: MULTIPLE VITAMIN TAB PO SCH (09:47)
[2017-07-16] MEDS: LISINOPRIL 10 MG TAB PO SCH (09:48)
[2017-07-16] MEDS: FAMOTIDINE 20 MG TAB PO SCH ×2 (09:48→21:53)
[2017-07-16] MEDS ORDERED: ALPRAZolam 0.5 MG TAB PO PRN (11:15)
[2017-07-16 12:41] VITALS: BP 151/83
[2017-07-16] MEDS: HYDROcodone-ACET 5/325MG TAB PO PRN ×2 (13:15→16:45)
[2017-07-16 14:45] VITALS: BP 151/83
[2017-07-16] MEDS ORDERED: LEVOFLOXACIN 500 MG TAB PO ONE (14:45)
[2017-07-16 17:21] VITALS: BP 135/94
[2017-07-16 20:00] VITALS: BP 140/94
[2017-07-17] MEDS: IPRATROPIUM BROM 0.5 MG/2.5ML INH SOL NEB SCH ×4 (00:48→18:14)
[2017-07-17] MEDS: ALBUTEROL SULF 2.5 MG/0.5ML(0.5%) NEB SOLN NEB SCH ×4 (00:48→18:14)
[2017-07-17] MEDS: SODIUM CHLORIDE 0.9% 1,000 ML IV SCH ×2 (01:18→17:47)
[2017-07-17 04:57] VITALS: BP 128/85
[2017-07-17] MEDS: InsuLIN REG 1unit/0.01ml Soln (100units/ml) SC SCH ×4 (06:41→21:43)
[2017-07-17] MEDS: ACCU-CHEK COMFORT CURVE STRIP VI SCH ×4 (06:41→21:44)
[2017-07-17 06:50] LABS: Basophils % (auto) 0.5 % (0.0-2.0); Eosinophils # (auto) 0.4 uL; Mean Corpuscular Hgb Conc. 33.3 g/dL (32.0-36.0); Nucleated Red Blood Cells % 0.2 %; White Blood Cell 10.6 10^3/uL (4.4-10.8)
[2017-07-17 06:52] LABS: Basophils # (auto) 0.1 uL; Hematocrit 51.8 % (41.0-53.0); Hemoglobin 17.3 g/dL (13.5-17.5); Lymphocytes # (auto) 1.6 uL; Lymphocytes % (auto) 15.1 % (10.0-50.0); Mean Corpuscular Hemoglobin 27.5 pg (28.0-32.0); Mean Corpuscular Volume 82.5 fL (80.0-100.0); Monocytes # (auto) 1.4 uL; Monocytes % (auto) 13.7 % (0.0-12.0); Neutrophils % (auto) 66.7 % (37.0-80.0); Platelet Count (auto) 324 10^3/uL (140-450); Red Blood Cells 6.27 10^6/uL (4.5-5.90); Red Cell Distribution Width 14.4 % (11.8-14.3)
[2017-07-17 07:45] VITALS: BP 125/76
[2017-07-17] MEDS: HCTZ 25 MG TAB PO SCH (09:25)
[2017-07-17] MEDS: LEVOFLOXACIN 500 MG TAB PO SCH (09:25)
[2017-07-17] MEDS: MULTIPLE VITAMIN TAB PO SCH (09:26)
[2017-07-17] MEDS: FAMOTIDINE 20 MG TAB PO SCH ×2 (09:26→21:43)
[2017-07-17] MEDS: LISINOPRIL 10 MG TAB PO SCH (09:26)
[2017-07-17 11:23] VITALS: BP 139/89
[2017-07-17] MEDS: BUDESONIDE (INHALATION) 0.5 MG/2 ML NEB NEB SCH ×2 (12:45→18:15)
[2017-07-17 17:13] VITALS: BP 126/89
[2017-07-17 21:54] VITALS: BP 137/77
[2017-07-18 04:50] VITALS: BP 110/73
[2017-07-18 06:44] LABS: Basophils # (auto) 0.1 uL; Basophils % (auto) 0.5 % (0.0-2.0); Eosinophils # (auto) 0.4 uL; Monocytes # (auto) 1.5 uL
[2017-07-18 06:46] LABS: Eosinophils % (auto) 3.3 % (0.0-7.0); Hematocrit 51.8 % (41.0-53.0); Hemoglobin 17.3 g/dL (13.5-17.5); Lymphocytes # (auto) 1.5 uL; Lymphocytes % (auto) 12.2 % (10.0-50.0); Mean Corpuscular Hgb Conc. 33.4 g/dL (32.0-36.0); Monocytes % (auto) 12.3 % (0.0-12.0); Neutrophils % (auto) 71.7 % (37.0-80.0); Nucleated Red Blood Cells % 0.1 %; Platelet Count (auto) 348 10^3/uL (140-450); Red Blood Cells 6.39 10^6/uL (4.5-5.90); Red Cell Distribution Width 14.3 % (11.8-14.3); White Blood Cell 12.6 10^3/uL (4.4-10.8)
[2017-07-18] MEDS: ACCU-CHEK COMFORT CURVE STRIP VI SCH ×2 (06:52→11:30)
[2017-07-18] MEDS: InsuLIN REG 1unit/0.01ml Soln (100units/ml) SC SCH ×2 (06:52→11:30)
[2017-07-18] MEDS: ALBUTEROL SULF 2.5 MG/0.5ML(0.5%) NEB SOLN NEB SCH ×2 (07:00)
[2017-07-18] MEDS: IPRATROPIUM BROM 0.5 MG/2.5ML INH SOL NEB SCH ×2 (07:00)
[2017-07-18 08:00] VITALS: BP 123/82
[2017-07-18 09:00] VITALS: BP 123/82
[2017-07-18] MEDS: BUDESONIDE (INHALATION) 0.5 MG/2 ML NEB NEB SCH (10:30)
[2017-07-18] MEDS: LEVOFLOXACIN 500 MG TAB PO SCH (10:33)
[2017-07-18] MEDS: HCTZ 25 MG TAB PO SCH (10:34)
[2017-07-18] MEDS: LISINOPRIL 10 MG TAB PO SCH (10:35)
[2017-07-18] MEDS: FAMOTIDINE 20 MG TAB PO SCH (10:35)
[2017-07-18] MEDS: MULTIPLE VITAMIN TAB PO SCH (10:35)
[2017-07-18] MEDS: SODIUM CHLORIDE 0.9% 1,000 ML IV SCH (10:36)
[2017-07-18 13:00] VITALS: BP 123/73
[2017-07-18 14:35] VITALS: BP 123/73
[2017-07-18 15:36] VITALS: BP 123/73
== END 2017-07-18 16:21 | disposition home or self-care (01) | DRG 177 ==
LOC: ER 03:50 → TELE 03:51 → TELE-EAST 16:59
PROVIDERS: ADMIT Internal Medicine; ATTEND Family Medicine
PROC: 0BBG3ZX Excision of Left Upper Lung Lobe, Percutaneous Approach, Diagnostic (ICD-10-PCS; principal; 2017-07-15)
PROC: 5A09357 Assistance with Respiratory Ventilation, Less than 24 Consecutive Hours, Continuous Positive Airway Pressure (ICD-10-PCS; 2017-07-17)
DX: J15.6 Pneumonia due to other Gram-negative bacteria (principal); J86.9 Pyothorax without fistula; I13.2 Hypertensive heart and chronic kidney disease with heart failure and with stage 5 chronic kidney disease, or end stage renal disease; C34.92 Malignant neoplasm of unspecified part of left bronchus or lung; E11.21 Type 2 diabetes mellitus with diabetic nephropathy; J45.909 Unspecified asthma, uncomplicated; E11.22 Type 2 diabetes mellitus with diabetic chronic kidney disease; N18.2 Chronic kidney disease, stage 2 (mild); F41.9 Anxiety disorder, unspecified; G47.30 Sleep apnea, unspecified; K57.30 Diverticulosis of large intestine without perforation or abscess without bleeding; Z80.8 Family history of malignant neoplasm of other organs or systems; Z85.038 Personal history of other malignant neoplasm of large intestine; Z90.49 Acquired absence of other specified parts of digestive tract; Z90.89 Acquired absence of other organs; Z71.3 Dietary counseling and surveillance
CPT/HCPCS: 10022; 36415; 71045; 71046; 71250; 74176; 77012; 80053; 81001; 82378; 82962; 83036; 83605; 83615; 83880; 84154; 84484; 85025; 85379; 85610; 85730; 86301; 87040; 87070; 87081; 87205; 93005; 93306; 94640; 94660; 96361; 96365; 96375; J1815; J2250

== ENCOUNTER 2017-12-26 14:55 | Inpatient (IN) | payer BC ==
[~2017-12-26] VITALS: Ht 172.7 cm; Wt 86.2 kg
[2017-12-26 15:35] LABS: Basophils # (auto) 0 uL; Basophils % (auto) 0.4 % (0.0-2.0); Eosinophils # (auto) 0.1 uL; Eosinophils % (auto) 1.6 % (0.0-7.0); Hematocrit 35.2 % (41.0-53.0); Hemoglobin 11.4 g/dL (13.5-17.5); Lymphocytes # (auto) 0.8 uL; Lymphocytes % (auto) 9.3 % (10.0-50.0); Mean Corpuscular Hemoglobin 28.2 pg (28.0-32.0); Mean Corpuscular Hgb Conc. 32.5 g/dL (32.0-36.0); Mean Corpuscular Volume 86.5 fL (80.0-100.0); Monocytes # (auto) 1.4 uL; Neutrophils # (auto) 6.7 uL; Neutrophils % (auto) 73.7 % (37.0-80.0); Platelet Count (auto) 323 10^3/uL (140-450); Red Blood Cells 4.07 10^6/uL (4.5-5.90); Red Cell Distribution Width 19.7 % (11.8-14.3)
[2017-12-26 15:37] LABS: White Blood Cell 9.1 10^3/uL (4.4-10.8)
[2017-12-26 15:49] LABS: Albumin 3.3 g/dL (3.4-5.0); Anion Gap 8 (5-15); Blood Urea Nitrogen 21 mg/dL (7-18); Carbon Dioxide 26 mmol/L (21-32); Chloride 101 mmol/L (98-107); Glucose 120 mg/dL (74-106); Magnesium 2.1 mg/dL (1.6-2.6); Potassium 4.1 mmol/L (3.5-5.1); Sodium 135 mmol/L (136-145)
[2017-12-26 15:55] LABS: Alanine Aminotransferase 42 U/L (16-61); Alkaline Phosphatase 122 U/L (45-117); Aspartate Aminotransferase 39 U/L (15-37); BUN/Creatinine Ratio 21.9; Bilirubin, Total 1.3 mg/dL (0.2-1.0); GFR African American 101 mL/min; GFR Non-African American 84 mL/min; Total Protein 8.2 g/dL (6.4-8.2)
[2017-12-26 18:52] LABS: Urine Bacteria NONE SEEN /hpf (None Seen); Urine Blood Negative /uL (Negative); Urine Mucus FEW (None Seen); Urine Specific Gravity 1.027 (1.001-1.035); Urine WBC 1 /hpf (0 - 3)
[2017-12-26] MEDS ORDERED: ALBUTEROL SULF 2.5 MG/0.5ML(0.5%) NEB SOLN NEB PRN (19:45)
[2017-12-26] MEDS ORDERED: LACTULOSE 20Gm/30ML SOLN PO PRN (19:45)
[2017-12-26] MEDS ORDERED: TEMAZEPAM 15 MG CAP PO PRN (19:45)
[2017-12-26] MEDS ORDERED: MORPHINE SULFATE 4 MG/ML SYR/VIAL IV PRN (19:45)
[2017-12-26] MEDS ORDERED: ONDANSETRON HCL 4 MG/2 ML VIAL IV PRN (19:45)
[2017-12-26] MEDS ORDERED: ACETAMINOPHEN 500 MG TAB PO PRN (19:45)
[2017-12-26] MEDS ORDERED: NITROGLYCERIN 0.4 MG SL TAB SL PRN (19:45)
[2017-12-26] MEDS ORDERED: LORazepam 0.5 MG TAB PO PRN (19:45)
[2017-12-26] MEDS: DOXYCYCLINE 100MG/250ML 250 ML IV SCH (20:43)
[2017-12-26 21:28] VITALS: BP 121/82
[2017-12-26 21:37] VITALS: BP 153/83
[2017-12-26] MEDS: SODIUM CHLOR 0.9% PF (SALINE LOCK) 10ML VIAL/SYR IV SCH (22:26)
[2017-12-27] MEDS: IPRATROPIUM BROM 0.5 MG/2.5ML INH SOL NEB SCH ×4 (01:22→19:14)
[2017-12-27] MEDS: ALBUTEROL SULF 2.5 MG/0.5ML(0.5%) NEB SOLN NEB SCH ×4 (01:22→19:14)
[2017-12-27] MEDS: MORPHINE SULFATE 4 MG/ML SYR/VIAL IV PRN ×3 (01:32→20:12)
[2017-12-27] MEDS ORDERED: HYDR-4683 PO (02:41)
[2017-12-27] MEDS ORDERED: MORP30TA PO (02:41)
[2017-12-27 05:41] VITALS: BP 117/71
[2017-12-27] MEDS: SODIUM CHLOR 0.9% PF (SALINE LOCK) 10ML VIAL/SYR IV SCH ×3 (06:27→21:27)
[2017-12-27] MEDS: DOXYCYCLINE 100MG/250ML 250 ML IV SCH ×2 (06:59→20:26)
[2017-12-27] MEDS: HYDROcodone-ACET 5/325MG TAB PO PRN (07:06)
[2017-12-27 08:58] VITALS: BP 128/79
[2017-12-27] MEDS: PANTOPRAZOLE 40 MG TAB PO SCH (09:39)
[2017-12-27] MEDS ORDERED: METF-370 PO (09:50)
[2017-12-27 13:23] VITALS: BP 129/68
[2017-12-27] MEDS ORDERED: DEXTROSE (50%) 50ML SYRG IV PRN (15:30)
[2017-12-27] MEDS ORDERED: InsuLIN REG 1unit/0.01ml Soln (100units/ml) SC SCH (15:30)
[2017-12-27] MEDS ORDERED: ACCU-CHEK COMFORT CURVE STRIP VI SCH (15:30)
[2017-12-27 16:09] LABS: INR 1.13 (0.9-1.15); Partial Thromboplastin Time 30.3 sec (23.78-33.04)
[2017-12-27] MEDS: InsuLIN REG 1unit/0.01ml Soln (100units/ml) SC SCH (16:38)
[2017-12-27] MEDS: ACCU-CHEK COMFORT CURVE STRIP VI SCH (16:38)
[2017-12-27 17:29] VITALS: BP 125/84
[2017-12-27] MEDS ORDERED: IOHEXOL 350 MG/ML 100ML IJ ONE (17:32)
[2017-12-27 21:36] VITALS: BP 126/77
[2017-12-28] MEDS: IPRATROPIUM BROM 0.5 MG/2.5ML INH SOL NEB SCH ×4 (00:36→19:36)
[2017-12-28] MEDS: ALBUTEROL SULF 2.5 MG/0.5ML(0.5%) NEB SOLN NEB SCH ×4 (00:36→19:36)
[2017-12-28] MEDS: MORPHINE SULFATE 4 MG/ML SYR/VIAL IV PRN ×2 (01:04→10:43)
[2017-12-28] MEDS: HYDROcodone-ACET 5/325MG TAB PO PRN (03:49)
[2017-12-28 05:25] VITALS: BP 118/67
[2017-12-28] MEDS: SODIUM CHLOR 0.9% PF (SALINE LOCK) 10ML VIAL/SYR IV SCH ×3 (06:00→21:55)
[2017-12-28] MEDS: ACCU-CHEK COMFORT CURVE STRIP VI SCH ×2 (06:29→18:17)
[2017-12-28] MEDS: InsuLIN REG 1unit/0.01ml Soln (100units/ml) SC SCH ×2 (06:29→17:00)
[2017-12-28 07:27] LABS: Calcium 8.7 mg/dL (8.5-10.1); Potassium 3.7 mmol/L (3.5-5.1)
[2017-12-28 07:30] LABS: BUN/Creatinine Ratio 21.8
[2017-12-28] MEDS: DOXYCYCLINE 100MG/250ML 250 ML IV SCH (07:55)
[2017-12-28 09:16] VITALS: BP 132/78
[2017-12-28] MEDS: PANTOPRAZOLE 40 MG TAB PO SCH (09:37)
[2017-12-28] MEDS: HCTZ 25 MG TAB PO SCH (09:38)
[2017-12-28] MEDS: LISINOPRIL 10 MG TAB PO SCH (09:38)
[2017-12-28] MEDS ORDERED: metFORMIN HYDROCHLORIDE 500 MG TAB PO SCH (10:00)
[2017-12-28 13:01] VITALS: BP 120/75
[2017-12-28] MEDS ORDERED: MORPHINE SULFATE 4 MG/ML SYR/VIAL IV PRN (14:00)
[2017-12-28] MEDS ORDERED: MORPHINE SULF 30 mg ER tab PO ONE (14:30)
[2017-12-28 16:54] VITALS: BP 133/79
[2017-12-28] MEDS: MORPHINE SULF 30 mg ER tab PO SCH (21:53)
[2017-12-28 22:08] VITALS: BP 122/74
[2017-12-28] MEDS ORDERED: ARTIFICIAL TEARS 15ml EACHEYE PRN (22:45)
[2017-12-29] MEDS: ALBUTEROL SULF 2.5 MG/0.5ML(0.5%) NEB SOLN NEB SCH ×3 (01:07→12:07)
[2017-12-29] MEDS: IPRATROPIUM BROM 0.5 MG/2.5ML INH SOL NEB SCH ×3 (01:07→12:07)
[2017-12-29 05:03] VITALS: BP 109/72
[2017-12-29] MEDS: ACCU-CHEK COMFORT CURVE STRIP VI SCH ×2 (06:33→17:28)
[2017-12-29] MEDS: SODIUM CHLOR 0.9% PF (SALINE LOCK) 10ML VIAL/SYR IV SCH ×2 (06:33→14:05)
[2017-12-29] MEDS: InsuLIN REG 1unit/0.01ml Soln (100units/ml) SC SCH ×2 (06:34→17:00)
[2017-12-29 08:15] VITALS: BP 101/59
[2017-12-29 09:19] VITALS: BP 101/59
[2017-12-29] MEDS ORDERED: GADOPENTETATE DIMEGLUMINE (10MMOL/20 ML) VIAL IV ONE (11:04)
[2017-12-29] MEDS: LISINOPRIL 10 MG TAB PO SCH (11:08)
[2017-12-29] MEDS: MORPHINE SULF 30 mg ER tab PO SCH (11:09)
[2017-12-29] MEDS: PANTOPRAZOLE 40 MG TAB PO SCH (11:11)
[2017-12-29] MEDS: HCTZ 25 MG TAB PO SCH (11:11)
[2017-12-29 13:28] VITALS: BP 101/68
[2017-12-29 16:52] VITALS: BP 101/59
[2017-12-29 16:56] VITALS: BP 113/73
== END 2017-12-29 18:11 | disposition home or self-care (01) | DRG 189 ==
LOC: ER 14:55 → TELE 14:56 → TELE-WESTW 21:13 → WEST WING 12-27 15:15
PROVIDERS: ADMIT Internal Medicine; ATTEND Internal Medicine
DX: J96.00 Acute respiratory failure, unspecified whether with hypoxia or hypercapnia (principal); C79.51 Secondary malignant neoplasm of bone; C34.32 Malignant neoplasm of lower lobe, left bronchus or lung; E44.1 Mild protein-calorie malnutrition; K76.9 Liver disease, unspecified; E11.9 Type 2 diabetes mellitus without complications; D63.8 Anemia in other chronic diseases classified elsewhere; K57.90 Diverticulosis of intestine, part unspecified, without perforation or abscess without bleeding; R91.1 Solitary pulmonary nodule; I10 Essential (primary) hypertension; J44.9 Chronic obstructive pulmonary disease, unspecified; J96.01 Acute respiratory failure with hypoxia; Z82.49 Family history of ischemic heart disease and other diseases of the circulatory system; Z85.038 Personal history of other malignant neoplasm of large intestine; Z80.8 Family history of malignant neoplasm of other organs or systems; Z85.89 Personal history of malignant neoplasm of other organs and systems; Z87.01 Personal history of pneumonia (recurrent); Z90.49 Acquired absence of other specified parts of digestive tract; Z68.28 Body mass index [BMI] 28.0-28.9, adult; Z90.89 Acquired absence of other organs; Z81.8 Family history of other mental and behavioral disorders
CPT/HCPCS: 36415; 36600; 70553; 71045; 71046; 71250; 71275; 76604; 80048; 80053; 81001; 82805; 82962; 83605; 83735; 84484; 85025; 85379; 85610; 85730; 87040; 87804; 93005; 94640; 94761; 96374; 96375; A6257; G0378; J1642; J2405; J3490

== ENCOUNTER 2018-01-03 08:18 | Emergency (ER) | payer BC ==
[~2018-01-03] VITALS: Ht 172.7 cm; Wt 88.9 kg
[~2018-01-03 08:18] MED LIST changes: +HYDR-4683 PO; +MORP30TA PO
[2018-01-03] MEDS ORDERED: SODIUM CHLORIDE 0.9% 1,000 ML IV ONE (08:43)
[2018-01-03 09:25] LABS: Urine Bacteria NONE SEEN /hpf (None Seen); Urine Blood Negative /uL (Negative); Urine Hyaline Cast FEW /lpf (0 - 2); Urine Specific Gravity 1.018 (1.001-1.035); Urine WBC 2 /hpf (0 - 3)
[2018-01-03 10:02] LABS: Basophils # (auto) 0.1 uL; Basophils % (auto) 0.7 % (0.0-2.0); Eosinophils # (auto) 0.2 uL; Eosinophils % (auto) 2.4 % (0.0-7.0); Hematocrit 33.1 % (41.0-53.0); Hemoglobin 10.5 g/dL (13.5-17.5); Lymphocytes # (auto) 0.8 uL; Mean Corpuscular Hemoglobin 27.7 pg (28.0-32.0); Mean Corpuscular Hgb Conc. 31.9 g/dL (32.0-36.0); Mean Corpuscular Volume 86.9 fL (80.0-100.0); Monocytes # (auto) 0.7 uL; Monocytes % (auto) 8.1 % (0.0-12.0); Neutrophils # (auto) 6.8 uL; Neutrophils % (auto) 79.8 % (37.0-80.0); Platelet Count (auto) 402 10^3/uL (140-450); Red Cell Distribution Width 18.5 % (11.8-14.3); White Blood Cell 8.6 10^3/uL (4.4-10.8)
[2018-01-03 10:15] LABS: Alanine Aminotransferase 30 U/L (16-61); Albumin 3.1 g/dL (3.4-5.0); Anion Gap 9 (5-15); BUN/Creatinine Ratio 18.1; Blood Urea Nitrogen 17 mg/dL (7-18); Calcium 9.1 mg/dL (8.5-10.1); Carbon Dioxide 27 mmol/L (21-32); Chloride 103 mmol/L (98-107); GFR African American 104 mL/min; GFR Non-African American 86 mL/min; Glucose 128 mg/dL (74-106); Magnesium 2.2 mg/dL (1.6-2.6); Potassium 4.2 mmol/L (3.5-5.1); Sodium 139 mmol/L (136-145)
[2018-01-03 10:23] LABS: INR 1.09 (0.9-1.15); Partial Thromboplastin Time 27.7 sec (23.78-33.04); Prothrombin Time 11.6 sec (9.27-12.13)
[2018-01-03 10:27] LABS: Alkaline Phosphatase 143 U/L (45-117); Aspartate Aminotransferase 21 U/L (15-37); Bilirubin, Total 1.2 mg/dL (0.2-1.0); Total Protein 7.6 g/dL (6.4-8.2)
[2018-01-03] MEDS ORDERED: IOHEXOL 350 MG/ML 100ML IJ ONE (12:19)
[2018-01-03] MEDS ORDERED: MORPHINE SULFATE 4 MG/ML SYR/VIAL IV ONE (15:45)
[2018-01-03 16:47] VITALS: BP 124/90
== END 2018-01-03 17:20 | disposition short-term general hospital (02) ==
LOC: ER 08:18
DX: R55 Syncope and collapse (principal); R06.00 Dyspnea, unspecified; C45.9 Mesothelioma, unspecified; E46 Unspecified protein-calorie malnutrition; D64.9 Anemia, unspecified; I26.99 Other pulmonary embolism without acute cor pulmonale; C78.00 Secondary malignant neoplasm of unspecified lung; J45.909 Unspecified asthma, uncomplicated; E11.9 Type 2 diabetes mellitus without complications; I10 Essential (primary) hypertension; Z90.49 Acquired absence of other specified parts of digestive tract; Z85.038 Personal history of other malignant neoplasm of large intestine; Z68.29 Body mass index [BMI] 29.0-29.9, adult
CPT/HCPCS: 36415; 70450; 71046; 71275; 80053; 81001; 82962; 83735; 84443; 84484; 85025; 85379; 85610; 85730; 93005; 94761; 96361; 96374; 99285; J2270; J7030; Q9967